=== PATIENT | male | born 1970 | race Native Hawaiian/Other Pacific Islander ===

== ENCOUNTER 2022-05-07 14:19 | Outpatient (CLI) | payer BC ==
[~2022-05-07 14:19] MED LIST: CYCL10TA35 PO; MEDROL DOSEPAK4 MG OR; MOBIC7.5 M1 PO
== END 2022-05-07 21:36 | disposition home or self-care (01) ==
LOC: MRI 14:19
PROVIDERS: ATTEND Orthopaedic Surgery
DX: M25.562 Pain in left knee (principal); M17.10 Unilateral primary osteoarthritis, unspecified knee; S83.241A Other tear of medial meniscus, current injury, right knee, initial encounter; Y92.89 Other specified places as the place of occurrence of the external cause